=== PATIENT | female | born 1955 | race Caucasian/White ===

== ENCOUNTER → 2022-05-22 | Outpatient (CLI) | payer MEDICARE, BC ==
[~2022-05-22] MED LIST: IOHEXOL 350 MG/ML 100ML INFUS..BTL IV ONE
== END | disposition home or self-care (01) ==
LOC: RAH 10:52
PROVIDERS: ATTEND Student in an Organized Health Care Education/Training Program
DX: R00.2 Palpitations (principal)
CPT/HCPCS: 75574; Q9967

== ENCOUNTER → 2023-11-23 | Outpatient (CLI) | payer MEDICARE, BC ==
[~2023-11-23] MED LIST changes: +HEParin 1,000 UNIT VIAL IVP SCH; -IOHEXOL 350 MG/ML 100ML INFUS..BTL IV ONE
[2023-11-23] MEDS: HEParin 5,000 UNIT VIAL ONE (14:55)
== END | disposition home or self-care (01) ==
LOC: SHCH 13:31
PROVIDERS: ATTEND Internal Medicine Cardiovascular Disease
DX: I42.0 Dilated cardiomyopathy (principal); R00.2 Palpitations
CPT/HCPCS: 78481; J1644; A9512